=== PATIENT | female | born 1980 | race Caucasian/White ===

== ENCOUNTER 2018-02-17 10:15 | Emergency (ER) | payer OTHER ==
[~2018-02-17] VITALS: Ht 167.6 cm; Wt 98.0 kg
[~2018-02-17 10:15] MED LIST: BACTROBAN22 GM TOP
[2018-02-17] MEDS ORDERED: ALLEGRA ALLERGY60 MG PO (10:33)
[2018-02-17] MEDS ORDERED: BENADRYL25 MG PO (10:33)
--- NOTE | 2018-02-18 07:22 | EKG ---
[facility] [address] [facility] [place], [place] [address] Signed Normal sinus rhythm Normal ECG No previous ECGs available Confirmed by ARIEL JOHNSON MD ([id number]) on 02/18/2018 7:21:51 AM Electronically Signed By: ARIEL JOHNSON MD 02/18/18 0722 PATIENT NAME: NIC SILVA Electrocardiogram DATE OF : 76 PHYSICIAN: ARIEL JOHSNON MD REPORT #: [id number] REPORT IS CONFIDENTIAL AND NOT TO BE RELEASED WITHOUT AUTHORIZATION
== END 2018-02-17 11:47 | disposition home or self-care (01) ==
LOC: ED 10:15
DX: R07.2 Precordial pain (principal); Z87.891 Personal history of nicotine dependence
CPT/HCPCS: 80048; 84484; 85025; 93005; 93010; 99283

== ENCOUNTER 2025-11-02 09:03 | Emergency (ER) | payer OTHER ==
[~2025-11-02] VITALS: Ht 167.6 cm; Wt 115.3 kg
[~2025-11-02 09:03] MED LIST changes: +ALLEGRA ALLERGY60 MG PO; +BENADRYL25 MG PO
[2025-11-02] MEDS ORDERED: LORazepam 0.5 MG TAB PO ONE (09:15)
[2025-11-02] MEDS ORDERED: BLACK SEED PO (09:23)
[2025-11-02] MEDS ORDERED: MULTI VITAMIN1 EACH PO (09:23)
[2025-11-02] MEDS ORDERED: MAGNESIUM100 MG PO (09:23)
[2025-11-02] MEDS ORDERED: ATIVAN0.5 MG PO (09:31)
[2025-11-02] MEDS ORDERED: CLONIDINE HCL0.1 MG PO (09:31)
--- NOTE | 2025-11-03 17:46 | EKG ---
[facility] [address] [facility] [place] [address] Signed Normal sinus rhythm Nonspecific T wave abnormality Abnormal ECG No previous ECGs available Confirmed by Bonny Joseph DO ([id number]) on 11/03/2025 5:46:39 PM Electronically Signed By: BONNY JOSEPH DO 11/03/25 174 PATIENT NAME: NIC SILVA Electrocardiogram DATE OF : 76 PHYSICIAN: BONNY JOSEPH DO REPORT #: [id number] REPORT IS CONFIDENTIAL AND NOT TO BE RELEASED WITHOUT AUTHORIZATION
== END 2025-11-02 10:40 | disposition home or self-care (01) ==
LOC: ED 09:03
DX: I16.0 Hypertensive urgency (principal); I10 Essential (primary) hypertension; Z79.899 Other long term (current) drug therapy; Z91.0110 Allergy to milk products, unspecified; Z91.018 Allergy to other foods; Z88.8 Allergy status to other drugs, medicaments and biological substances; Z87.891 Personal history of nicotine dependence
CPT/HCPCS: 93005; 93010; 99284